=== PATIENT | female | born 1980 | race Caucasian/White ===

== ENCOUNTER 2018-09-19 19:53 | Emergency (ER) | payer SELFPAY ==
[~2018-09-19] VITALS: Ht 157.5 cm; Wt 206.0 kg
[2018-09-19 20:32] LABS: BASO # 0.1 10^3/uL (0.0-0.2); BASO % 0.9 % (0.0-1.0); EOS # 0.2 10^3/uL (0.0-0.50); EOS % 2.4 % (0.0-3.0); HEMATOCRIT 30.3 % (36.0-47.0); HEMOGLOBIN 9.4 g/dl (12.0-15.5); LYMPH # 1.6 10^3/uL (1.5-4.5); LYMPH % 24.2 % (24.0-44.0); MEAN CORPUSCULAR HEMOGLOBIN 25.1 pg (27.0-33.0); MONO # 0.6 10^3/uL (0.0-0.8); MONO % 8.8 % (0.0-5.0); NEUTROPHILS # 4.3 10^3/uL (1.8-7.7); NEUTROPHILS % 63.4 % (36.0-66.0); PLATELET COUNT, AUTOMATED 262 10^3/uL (150-450); RED BLOOD COUNT 3.74 10^6/uL (4.00-5.40); WHITE BLOOD COUNT 6.7 10^3/uL (4.0-10.0)
--- NOTE | 2018-09-19 20:54 | ECGEPIP ---
[facility] - ED Test Date: 2018-09-19 Pat Name: MIKE AVENDANO Department: Room: - Gender: Female Proctologist: ct : 1980 Requested By: MARIELLA Culver Order Number: [id number] Reading MD: Rigoberto Ernandez Measurements Intervals [place] Rate: 85 P: 44 AL: 153 QRS: QRSD: 98 T: 24 QT: 356 QTc: 424 Interpretive Statements SINUS RHYTHM BORDERLINE LEFT AXIS DEVIATION INCOMPLETE RIGHT BUNDLE BRANCH BLOCK VOLTAGE CRITERIA FOR LVH NO PRIOR ECG FOR COMPARISON NONSPECIFIC ST T WAVE CHANGES Electronically Signed on 09-19-2018 20:53:53 EDT by Rigoberto Ernandez
[2018-09-19 21:11] LABS: BLOOD UREA NITROGEN 7 MG/DL (7-18); CALCIUM LEVEL 8.7 MG/DL (8.5-10.1); CARBON DIOXIDE LEVEL 23 MEQ/L (21-32); CHLORIDE LEVEL 108 MEQ/L (98-107); CK-MB VALUE MASS < 1.0 NG/ML (<3.6); CPK CREATINE PHOSPHOKINASE 97 U/L (26-192); CREATININE FOR GFR 0.68 MG/DL (0.55-1.30); GLOMERULAR FILTRATION RATE > 60.0 (>60); GLUCOSE, FASTING 87 MG/DL (70-100); HCG, SERUM QUANTITATIVE 47675 MIU/ML; MB/CK RELATIVE INDEX 1.03 (< OR =4); POTASSIUM SERUM 3.3 MEQ/L (3.5-5.1); SODIUM LEVEL 140 MEQ/L (136-145); TROPONIN I < 0.02 NG/ML (< 0.10)
[2018-09-19 23:49] LABS: CK-MB VALUE MASS < 1.0 NG/ML (<3.6); CPK CREATINE PHOSPHOKINASE 95 U/L (26-192); MB/CK RELATIVE INDEX 1.05 (< OR =4); TROPONIN I < 0.02 NG/ML (< 0.10)
[2018-09-20] MEDS ORDERED: PRENTAB29 PO (00:24)
[2018-09-20 00:25] VITALS: BP 142/78
[2018-09-20] MEDS ORDERED: PRIL20TA2 PO (00:27)
--- NOTE | 2018-09-20 09:07 | REP ---
Portable chest x-ray: Sitting AP view. History: Chest pain. Findings: EKG monitoring electrodes overlie the chest. Heart size is normal. Lung argueta are clear. Pleural angles are sharp. Pulmonary vasculature is not increased. No bony abnormality is appreciated. Impression: Negative portable chest x-ray. Electronically Signed by Maicol Rae MD 09/20/2018 08:59 A
--- NOTE | 2018-09-22 16:30 | ECGEPIP ---
[facility] - ED Test Date: 2018-09-19 Pat Name: MIKE AVENDANO Department: Room: - Gender: Female [employer]er: DESTIN : 1980 Requested By: BACILIO Etienne Order Number: [id number] Reading MD: Bacilio Khan Measurements Intervals [place] Rate: 85 P: 25 PA: 160 QRS: QRSD: 102 T: 17 QT: 370 QTc: 442 Interpretive Statements SINUS RHYTHM INCOMPLETE RIGHT BUNDLE BRANCH BLOCK VOLTAGE CRITERIA FOR LVH Delayed anterior R wave progression Nonspecific ST-T wave abnormalities Similar to tracing done 20:04 on the same day Electronically Signed on 09-22-2018 16:30:05 EDT by Bacilio Khan
== END 2018-09-20 00:33 | disposition home or self-care (01) ==
LOC: M ED 19:53
DX: O99.89 Other specified diseases and conditions complicating pregnancy, childbirth and the puerperium (principal); R07.89 Other chest pain; R06.02 Shortness of breath; I45.19 Other right bundle-branch block; Z79.899 Other long term (current) drug therapy; Z88.5 Allergy status to narcotic agent; Z88.8 Allergy status to other drugs, medicaments and biological substances; Z91.048 Other nonmedicinal substance allergy status; Z3A.00 Weeks of gestation of pregnancy not specified